=== PATIENT | male | born 1945 | race Caucasian/White ===

== ENCOUNTER 2016-12-12 10:50 | Day surgery (SDC) | payer MEDICARE, BC ==
[~2016-12-12] VITALS: Ht 185.4 cm; Wt 113.4 kg
--- NOTE | ~2016-12-12 | OP ---
PATIENT NAME: JOSE SRIVASTAVA MEDICAL RECORD: [id number] :45 LOCATION:[facility] ADMISSION DATE: SURGEON: JAYJAY MAYS OPERATION DATE: 12/12/16 DATE OF OPERATION: 12/12/2016 SURGEON: Jayjay Mays DPM. PREOPERATIVE DIAGNOSIS: Osteophyte, right first metatarsal. POSTOPERATIVE DIAGNOSIS: Osteophyte, right first metatarsal. PROCEDURE: Excision of osteophyte, right foot. ANESTHESIA: Local with monitored anesthesia care. HEMOSTASIS: Maintained on the field. ESTIMATED BLOOD LOSS: Minimal. MATERIALS: 3-0 Vicryl and 4-0 Prolene. INJECTABLES: A 10 cc of 0.5% bupivacaine plain. INDICATIONS: The patient has history of an osteophyte on the plantar surface of the right first metatarsal. This has been causing pain with ambulation. I have discussed with him the proposed procedure, risks and benefits were reviewed. Complications were discussed. He was appropriately consented for removal of osteophyte, right foot. DESCRIPTION OF PROCEDURE: Patient was brought in the operating room and remained on the gurney for the procedure. Once appropriate anesthesia was obtained, the foot was prepped and draped in the usual aseptic manner. Removal of osteophyte, right foot. Attention was directed to the medial aspect of the right foot where a 4-cm linear incision was made. This incision was carried deep to soft tissue with care being taken to retract all vital neurovascular structures. All bleeders were cauterized along the way. Periosteum was then reflected from the distal one-third of the first metatarsal head and a prominent osteophyte was identified. Utilizing an osteotome and a mallet, the osteophyte was removed and was sent to pathology. The surgical site was then investigated for any remaining sharp bony prominences and none were noted. The surgical site was then irrigated with copious amounts of normal sterile saline via bulb syringe. The subQ was then reapproximated and coapted using 3-0 Vicryl. The skin was then reapproximated and coapted using 4-0 nylon. A dressing consisting of Xeroform, 4 x 4's, Kerlix, and Coban was applied to the right foot. The patient tolerated the procedure and anesthesia well. He left the operating room with vital signs stable and capillary refill time intact. The patient was discharged home with instructions to ice and elevate the right foot. He was dispensed a postop shoe that he is to wear at all times when OPERATIVE REPORT [id number] JOSE SRIVASTAVA ambulating. We will follow up with him next week. He has my cell phone number for any after hours difficulties and there were no complications with this procedure. TRANSINT:[id number] Voice Confirmation ID: [id number] DOCUMENT ID: [id number] JAYJAY MAYS CC: [id number] DICTATION DATE: 12/12/161626 [employer]ER: 12/12/161914 [facility] 12/12/16 [facility] [address] [place] [address]
[~2016-12-12 10:50] MED LIST: ALEVE220 MG OR; CYMBALTA30 MG OR; GLUCOPHAGE500 MG PO; LYRICA100 MG OR; MORPHINE IMMEDI30 M1 PO; NORCO 10/325 TA1 TA1 OR; OXYCONTIN20 MG OR; PRAVACHOL40 MG PO; TRICOR145 MG PO
[2016-12-12 12:21] LABS: HEMOGLOBIN 14.8 g/dL (13.5-17.5); MCH 30.1 pg (26.0-34.0); MCHC 32.9 g/dL (31.0-37.0); MCV 91.5 fL (80.0-100.0); MEAN PLATELET VOLUME 9.3 fL (7.4-10.4); RBC 4.92 10x6/uL (4.20-6.10); RDW 12.8 % (11.5-14.5); WBC 5.7 10x3/uL (4.8-10.8)
[2016-12-12] MEDS ORDERED: ZANAFLEX4 MG PO (12:58)
[2016-12-12] MEDS ORDERED: CILOSTAZOL100 MG PO (12:59)
[2016-12-12] MEDS ORDERED: PROTONIX40 MG PO (12:59)
[2016-12-12] MEDS ORDERED: LISINOPRIL2.5 MG PO (13:00)
[2016-12-12] MEDS ORDERED: PAMELOR10 MG PO (13:01)
[2016-12-12] MEDS ORDERED: REQUIP1 MG PO (13:01)
[2016-12-12 13:06] VITALS: BP 120/64; Ht 185.4 cm; Wt 113.4 kg
--- NOTE | 2016-12-12 17:58 | NUR ---
1700- FULL LIQUIDS TOLERATED. IV D/C'D, PT TOLERATED. CATH INTACT VOIDED WITHOUT DIFFICULTY. 1715- DISCHARGE INSTRUCTIONS COMPLETED, VERBALIZED UNDERSTANDING. PAPERWORK SIGNED. 1720- PT DISCHARGED VIA WHEELCHAIR WITH FAMILY.
== END 2016-12-12 17:20 | disposition home or self-care (01) ==
LOC: D.OPS 10:50 → D.PAN 14:00 → D.OPS 14:45
PROVIDERS: Anesthesiology
DX: M25.774 Osteophyte, right foot (principal); Z01.812 Encounter for preprocedural laboratory examination